=== PATIENT | female | born 1970 | race Caucasian/White ===

== ENCOUNTER 2020-11-27 15:13 | Emergency (ER) | payer BC, OTHER ==
[2020-11-27 15:25] VITALS: BP 156/70; PULSE 112; RESP 20; TEMP 98.1
[2020-11-27] MEDS ORDERED: LIDOCAINE 1% INJ 10MG/ML (20 ML MDV) SQ ONE (15:33)
--- NOTE | 2020-11-27 16:10 | ED ---
Wound/Laceration HPI - General Chief Complaint: Wound/Laceration Stated Complaint: Finger laceration Time Seen by Provider: 11/27/20 15:29 Source: patient Mode of arrival: ambulatory Limitations: no limitations - History of Present Illness Initial Comments: 50-year-old female presents to emergency department with a laceration. Patient states this occurred about one hour prior to arrival while she was using a metal handler. Patient reports lacerations on the medial aspect of the left fifth digit. Reports some bleeding which is since resolved. Denies blood thinners tetanus up-to-date. Denies paresthesias or weakness. Minimal pain. - Related Data Previous Rx's Medication Instructions Recorded Hydrocodone/Acetaminophen [[place] 1 each PO Q4HR PRN #20 tablet 10/11/13 10-325 Tablet] Mupirocin 2% Oint [Bactroban 2% 1 applic TOPICAL TID #15 gm 10/11/13 Oint] Sulfamethox-Tmp 800-160Mg [Bactrim 2 each PO Q12HR #40 tab 10/11/13 DS 800-160 mg] valACYclovir HCL [valACYclovir] 1,000 mg PO Q8HR #21 tab 10/11/13 Allergies Allergy/AdvReac Type Severity Reaction Status Date / Time Penicillins Allergy Rash/Hives Verified 11/27/20 15:25 Review of Systems ROS Statement: Those systems with pertinent positive or pertinent negative responses have been documented in the HPI. ROS Other: All systems not noted in ROS Statement are negative. Past Medical History Past Medical History: Hypertension Additional Past Medical History / Comment(s): MRSA History of Any Multi-Drug Resistant Organisms: MRSA Date of last positivie culture/infection: 07/2012 MDRO Source:: lip Past Surgical History: Tubal Ligation Past Psychological History: No Psychological Hx Reported Smoking Status: Never smoker Past Alcohol Use History: Rare Past Drug Use History: None Reported General Exam Limitations: no limitations General appearance: alert, in no apparent distress, obese Head exam: Present: atraumatic, normocephalic, normal inspection Eye exam: Present: normal appearance, EOMI Pupils: Present: normal accommodation ENT exam: Present: normal exam, normal oropharynx, mucous membranes moist Neck exam: Present: normal inspection, full ROM Respiratory exam: Present: normal lung sounds bilaterally. Absent: respiratory distress Cardiovascular Exam: Present: regular rate, normal rhythm, normal heart sounds. Absent: systolic murmur Extremities exam: Present: full ROM, tenderness (Some tenderness at lacerated site), normal capillary refill, other (Sensation intact in the left hand). Absent: normal inspection (1 [place] laceration on the distal left fifth digit) Back exam: Present: normal inspection, full ROM Neurological exam: Present: alert, oriented X3, normal gait Psychiatric exam: Present: normal affect, normal mood Skin exam: Present: warm, dry, intact, normal color Course Vital Signs 11/27/20 15:22 Temperature 98.1 F Pulse Rate 112 H Respiratory 20 Rate Blood Pressure 156/70 O2 Sat by Pulse 99 Oximetry Procedures - Laceration Laceration #1 Consent Obtained: verbal consent Indication: laceration Site: hand (Left fifth digit) Size (cm): 1 Description: linear, clean Depth: simple, single layer Sedation/Analgesia: none Anesthetic Used: lidocaine 1% Anesthesia Technique: nerve block Amount (mls): 2 Pre-repair: irrigated extensively, deep structures intact Type of Sutures: nylon Size of Sutures: 4-0 Number of Sutures: 3 Technique: simple, interrupted Patient Tolerated Procedure: well, no complications Medical Decision Making - Medical Decision Making 50-year-old male presents emergency Department with a chief complaint laceration. It was thoroughly irrigated and repaired with 3 sutures. Patient tolerate the procedure well. Advised to return for suture removal. Case discussed with physician. Disposition Clinical Impression: Finger laceration Disposition: HOME SELF-CARE Condition: Stable Instructions (If sedation given, give patient instructions): Care For Your Stitches (DC), Laceration (DC) Additional Instructions: Please return to the emergency room in 8-10 days to have sutures removed. Pleas e watch for any signs of infection which may include increased pain, swelling, redness, fever or chills. Please return to emergency room for any signs of infection do occur. Please use clean soap and water over the area to prevent scabbing over your stitches. Please leave wound covered for the first 24-48 hours and then leave wound open to air. Please return to the emergency room for any other concerns. Is patient prescribed a controlled substance at d/c from ED?: No Referrals: Rex Abad MD [Primary Care Provider] - 1-2 days Time of Disposition: 16:09
== END 2020-11-27 16:25 | disposition home or self-care (01) ==
LOC: EC 15:13
DX: S61.227A Laceration with foreign body of left little finger without damage to nail, initial encounter (principal); I10 Essential (primary) hypertension; Z88.0 Allergy status to penicillin; W29.0XXA Contact with powered kitchen appliance, initial encounter
CPT/HCPCS: 99282; 12001; J2001

== ENCOUNTER 2022-04-11 14:38 | Emergency (ER) | payer BC ==
[2022-04-11 14:42] VITALS: BP 177/96; PULSE 95; RESP 16; TEMP 98
--- NOTE | 2022-04-11 16:00 | XR ---
EXAMINATION TYPE: XR hand complete LT DATE OF EXAM: 04/11/2022 COMPARISON: NONE HISTORY: Wrist pain TECHNIQUE: 3 views FINDINGS: Metacarpals are intact. The fingers appear intact. Carpal bones appear intact. There is min or spurring at the first carpal metacarpal joint. IMPRESSION: No acute abnormality of the left hand.
--- NOTE | 2022-04-11 16:03 | XR ---
EXAMINATION TYPE: XR wrist complete LT DATE OF EXAM: 04/11/2022 COMPARISON: NONE HISTORY: Pain TECHNIQUE: 4 views FINDINGS: There is some mild spurring at the first carpometacarpal joint. The carpal bones are intact . Radiocarpal joint is intact. IMPRESSION: No acute abnormality of the left wrist.
--- NOTE | 2022-04-11 16:31 | ED ---
Upper Extremity HPI - General Chief Complaint: Extremity Injury, Upper Stated Complaint: L hand injury Time Seen by Provider: 04/11/22 14:44 Source: patient Mode of arrival: ambulatory Limitations: no limitations - History of Present Illness Initial Comments: Patient is a 51-year-old female presenting with chief complaint of left wrist pain. Patient states that 3 days ago she was holding her dog's leash and had it wrapped around her hand and wrist, the dog ran pulling her hand with him and causing her to close her hand in a heavy door. She states that initially the pain was not that bad, but as time has gone on the pain has increased with each day. There is some swelling and bruising noted to the hand and wrist. No numbness or tingling. Patient still has full range of motion. - Related Data Previous Rx's Medication Instructions Recorded Hydrocodone/Acetaminophen [[place] 1 each PO Q4HR PRN #20 tablet 10/11/13 10-325 Tablet] Mupirocin 2% Oint [Bactroban 2% 1 applic TOPICAL TID #15 gm 10/11/13 Oint] Sulfamethox-Tmp 800-160Mg [Bactrim 2 each PO Q12HR #40 tab 10/11/13 DS 800-160 mg] valACYclovir HCL [valACYclovir] 1,000 mg PO Q8HR #21 tab 10/11/13 Allergies Allergy/AdvReac Type Severity Reaction Status Date / Time Penicillins Allergy Rash/Hives Verified 11/27/20 15:25 Review of Systems ROS Statement: Those systems with pertinent positive or pertinent negative responses have been documented in the HPI. ROS Other: All systems not noted in ROS Statement are negative. Past Medical History Past Medical History: Asthma, Hypertension Additional Past Medical History / Comment(s): MRSA History of Any Multi-Drug Resistant Organisms: MRSA Date of last positivie culture/infection: 07/2012 MDRO Source:: lip Past Surgical History: Tubal Ligation Past Psychological History: No Psychological Hx Reported Smoking Status: Never smoker Past Alcohol Use History: Rare Past Drug Use History: None Reported General Exam Limitations: no limitations General appearance: alert, in no apparent distress Head exam: Present: atraumatic, normocephalic, normal inspection Eye exam: Present: normal appearance Neck exam: Present: normal inspection Left Forearm Wrist exam: Present: tenderness over anatomical snuff box Hand Wrist exam: Present: full ROM, tenderness, swelling, ecchymosis. Absent: deformity Vascular: Present: normal capillary refill. Absent: vascular compromise Neurological exam: Present: alert, oriented X3, CN II-XII intact Psychiatric exam: Present: normal affect, normal mood Skin exam: Present: warm, dry, intact, normal color. Absent: rash Course Vital Signs 04/11/22 14:39 Temperature 98 F Pulse Rate 95 Respiratory 16 Rate Blood Pressure 177/96 O2 Sat by Pulse 99 Oximetry Medical Decision Making - Medical Decision Making Patient is a 51-year-old female presenting with chief complaint of left hand and wrist injury that occurred 3 days ago. She is complaining of tenderness, sw elling, and bruising. On examination she has full range of motion, however there is pain with range of motion. Neurovascularly intact. There is snuffbox tenderness. X-ray shows no acute fracture or dislocation. Patient is placed in a thumb spica splint due to snuffbox tenderness and is instructed to follow-up with orthopedics. Educated on supportive treatment with Motrin and Tylenol resting and elevation. Follow-up with PCP. Report back to ER with any new or worsening symptoms. Discussed return parameters and answered all questions. Patient conveyed verbal understanding and agreed to the plan. I discussed this case in detail with my attending Dr. Weir Disposition Clinical Impression: Wrist sprain, Tenderness of anatomical snuffbox Disposition: HOME SELF-CARE Condition: Good Instructions (If sedation given, give patient instructions): Wrist Injury (ED), Scaphoid Fracture (ED) Additional Instructions: Follow-up with PCP and orthopedics. Report back to ER with any new or worsening symptoms. Take Motrin and Tylenol as needed for pain control. Rest and elevate the arm. You may have a scaphoid fracture which is why the splint was placed today in the ER. Keep splint on until instructed by orthopedics. Is patient prescribed a controlled substance at d/c from ED?: No Referrals: Rex Abad MD [Primary Care Provider] - 1-2 days Sunil Matthews PAC [PH[employer]IC[employer]] - 1-2 days Time of Disposition: 16:30
== END 2022-04-11 16:40 | disposition home or self-care (01) ==
LOC: EC 14:38
DX: S63.502A Unspecified sprain of left wrist, initial encounter (principal); J45.909 Unspecified asthma, uncomplicated; I10 Essential (primary) hypertension; Z88.0 Allergy status to penicillin; X50.9XXA Other and unspecified overexertion or strenuous movements or postures, initial encounter; Y92.89 Other specified places as the place of occurrence of the external cause
CPT/HCPCS: 99283

== ENCOUNTER 2024-02-20 22:24 | Emergency (ER) | payer BC ==
[2024-02-20 22:29] VITALS: TEMP 97.8
--- NOTE | 2024-02-20 22:44 | ED ---
General Adult HPI - General Chief complaint: Shortness of Breath Stated complaint: SANDY Time Seen by Provider: 02/20/24 22:30 Source: patient Mode of arrival: ambulatory Limitations: no limitations - History of Present Illness Initial comments: Dictation was produced using [email or web address] dictation software. please excuse any grammatical, word or spelling errors. Chief Complaint: 53-year-old female history of asthma presents to the emergency department with cough and dyspnea History of Present Illness: Patient 53-year-old female she has history of asthma. She states that her asthma is managed by her primary care doctor. She does not see a legal instruments examiner. Denies any history of chronic lung issues. She does not have any history of tobacco use. For the last 1 to 2 days she has been having cough. Is productive of clear phlegm. She is exposed to her daughter who had similar respiratory symptoms recently. Denies any fever, chills or night sweats. Denies any chest pain. Denies any lower extremity symptoms. No history of blood clots. The ROS documented in this emergency department record has been reviewed and confirmed by me. Those systems with pertinent positive or negative responses have been documented in the HPI. All other systems are other negative and/or noncontributory. - Related Data Previous Rx's Medication Instructions Recorded Hydrocodone/Acetaminophen [[place] 1 each PO Q4HR PRN #20 tablet 10/11/13 10-325 Tablet] Mupirocin 2% Oint [Bactroban 2% 1 applic TOPICAL TID #15 gm 10/11/13 Oint] Sulfamethox-Tmp 800-160Mg [Bactrim 2 each PO Q12HR #40 tab 10/11/13 DS 800-160 mg] valACYclovir HCL [valACYclovir] 1,000 mg PO Q8HR #21 tab 10/11/13 Azithromycin [Zithromax Z Pack] 1 tab PO DIRECTED #6 tab 02/21/24 Allergies Allergy/AdvReac Type Severity Reaction Status Date / Time Penicillins Allergy Rash/Hives Verified 11/27/20 15:25 Review of Systems ROS Statement: Those systems with pertinent positive or pertinent negative responses have been documented in the HPI. ROS Other: All systems not noted in ROS Statement are negative. Past Medical History Past Medical History: Asthma, Hypertension Additional Past Medical History / Comment(s): MRSA History of Any Multi-Drug Resistant Organisms: MRSA Date of last positivie culture/infection: 07/2012 MDRO Source:: lip Past Surgical History: Tubal Ligation Past Psychological History: No Psychological Hx Reported Smoking Status: Never smoker Past Alcohol Use History: Rare Past Drug Use History: None Reported General Exam - General Exam Comments Initial Comments: PHYSICAL EXAM: General Impression: Alert and oriented x3, n distress secondary to coughing HEENT: Normocephalic atraumatic, extra-ocular movements intact, pupils equal and reactive to light bilaterally, mucous membranes moist. Cardiovascular: Heart regular rate and rhythm Chest: Able to complete full sentences, no retractions, no tachypnea, clear to auscultation bilaterally Abdomen: abdomen soft, non-tender, non-distended, no organomegaly Musculoskeletal: Pulses present and equal in all extremities, no peripheral edema Motor: no focal deficits noted Neurological: CN II-XII grossly intact, no focal motor or sensory deficits noted Skin: Intact with no visualized rashes Psych: Normal affect and mood Limitations: no limitations Course Vital Signs 02/20/24 02/20/24 02/20/24 22:27 23:12 23:25 Temperature 97.8 F Pulse Rate 127 H 120 H 122 H Respiratory 26 H Rate Blood Pressure 157/86 O2 Sat by Pulse 97 Oximetry 02/21/24 02/21/24 02/21/24 00:18 00:29 01:15 Temperature Pulse Rate 118 H 119 H 106 H Respiratory 18 Rate Blood Pressure 106/70 O2 Sat by Pulse 98 Oximetry EKG Findings - EKG Comments: EKG Findings:: My EKG interpretation: Ventricular rate 119, sinus tachycardia, RI interval 150, QRS 90, QTc 411. No RI prolongation, no QTC prolongation, no ST or T-wave changes noted. Overall, this EKG is unremarkable Medical Decision Making - Medical Decision Making Was pt. sent in by a medical professional or institution (, PA, MACHINE TECHNICIAN, urgent care, hospital, or long-term...) When possible be specific @ -No Did you speak to anyone other than the patient for history (EMS, parent, family, police, friend...)? What history was obtained from this source @ -No Did you review nursing and triage notes (agree or disagree)? Why? @ -I reviewed and agree with nursing and triage notes Were old charts reviewed (outside hosp., previous admission, EMS record, old EKG, old radiological studies, urgent care reports/EKG's, long-term records)? Report findings @ -No old charts were reviewed Differential Diagnosis (chest pain, altered mental status, abdominal pain women, abdominal pain men, vaginal bleeding, musculoskeletal, weakness, fever, dyspnea, syncope, headache, dizziness, GI bleed, back pain, seizure, CVA, palpatations, mental health)? @ -Differential Dyspnea: Coronary syndrome, arrhythmia, tamponade, asthma, COPD, pulmonary embolism, pneumonia, pneumothorax, pulmonary effusion, anaphylaxis, diabetic ketoacidosis, flailed chest, pulmonary contusion, diaphragmatic rupture, anemia, neuromuscular, this is not meant to be an all-inclusive list. EKG interpreted by me (3pts min.). @ -None done X-rays interpreted by me (1pt min.). @ -No acute process seen on chest x-ray CT interpreted by me (1pt min.). @ -None done U/S interpreted by me (1pt. min.). @ -None done What testing was considered but not performed or refused? (CT, X-rays, U/S, labs)? Why? @ -None What meds were considered but not given or refused? Why? @ -None Was smoking cessation discussed for >3mins.? @ -No Were there social determinants of health that impacted care today? How? (Homelessness, low income, unemployed, alcoholism, drug addiction, transportation, low edu. Level, literacy, decrease access to med. care, skilled nursing, r ehab)? @ -No Was there de-escalation of care discussed even if they declined (Discuss DNR or withdrawal of care, Hospice)? DNR status @ -No What co-morbidities impacted this encounter? (DM, HTN, Smoking, COPD, CAD, Cancer, CVA, ARF, Chemo, Hep., AIDS, mental health diagnosis, sleep apnea, morbid obesity)? @ -Asthma Was patient admitted / discharged? Hospital course, mention meds given and route , prescriptions, significant lab abnormalities, going to OR and other pertinent info. @ -53-year-old female presents emergency department with acute bronchitis. Vital signs upon arrival tachycardia. Tachycardia improved after breathing treatment. Laboratory evaluation obtained. Labs are within acceptable limits. Slight dehydration. Viral testing negative. X-ray is nonacute. Patient breath ing treatment steroids reevaluated bedside with significant improvement of her symptoms. Patient agreeable for discharge. She is given Z-Lucian for concerns of bacterial pneumonia causing acute bronchitis Did you discuss the management of the patient with other professionals (professionals i.e. , PA, MACHINE TECHNICIAN, lab, RT, psych nurse, social media manager, ruffler, teacher, safety instruction police officer, corrections caseworker)? Give summary @ -No Was critical care preformed (if so, how long)? @ -No Undiagnosed new problem with uncertain prognosis? @ -No Drug Therapy requiring intensive monitoring for toxicity (Heparin, Nitro, In sulin, Cardizem)? @ -No Were any procedures done? @ -No Diagnosis/symptom? Acute, or Chronic, or Acute on Chronic? Uncomplicated (without systemic symptoms) or Complicated (systemic symptoms)? @ -Acute bacterial pneumonia complicated by acute bronchitis Side effects of treatment? @ -No Exacerbation, Progression, or Severe Exacerbation? @ -No Poses a threat to life or bodily function? How? (Chest pain, [place], [place], pneumonia, PE, COPD, DKA, ARF, appy, cholecystitis, CVA, Diverticulitis, Homicidal, Suicidal, threat to staff... and all critical care pts) @ -yes - Lab Data Result diagrams: 02/20/24 22:40 02/20/24 22:40 Lab Results 02/20/24 02/20/24 02/20/24 Range/Units 22:40 22:40 22:40 WBC 6.7 (3.8-10.6) k/uL RBC 4.80 (3.80-5.40) m/uL Hgb 14.6 (11.4-16.0) gm/dL Hct 43.9 (34.0-46.0) % MCV 91.5 (80.0-100.0) fL MCH 30.5 (25.0-35.0) pg MCHC 33.3 (31.0-37.0) g/dL RDW 13.1 (11.5-15.5) % Plt Count 237 (150-450) k/uL MPV 7.4 Neutrophils % 54 % Lymphocytes % 31 % Monocytes % 6 % Eosinophils % 7 % Basophils % 0 % Neutrophils # 3.6 (1.3-7.7) k/uL Lymphocytes # 2.1 (1.0-4.8) k/uL Monocytes # 0.4 (0-1.0) k/uL Eosinophils # 0.5 (0-0.7) k/uL Basophils # 0.0 (0-0.2) k/uL Sodium 140 (137-145) mmol/L Potassium 3.9 (3.5-5.1) mmol/L Chloride 106 (98-107) mmol/L Carbon Dioxide 29 (22-30) mmol/L Anion Gap 5 mmol/L BUN 19 H (7-17) mg/dL Creatinine 0.66 (0.52-1.04) mg/dL Est GFR (CKD-EPI)AfAm >90 (>60 ml/min/1.73 sqM) Est GFR (CKD-EPI)NonAf >90 (>60 ml/min/1.73 sqM) Glucose 127 H (74-99) mg/dL Calcium 9.5 (8.4-10.2) mg/dL Influenza Type A (PCR) Not Detected (Not Detectd) Influenza Type B (PCR) Not Detected (Not Detectd) RSV (PCR) Not Detected (Not Detectd) SARS-CoV-2 (PCR) Not Detected (Not Detectd) Disposition Clinical Impression: Pneumonia, Acute bronchitis Disposition: HOME SELF-CARE Instructions (If sedation given, give patient instructions): Acute Bronchitis (ED) Prescriptions: Azithromycin [Zithromax Z Pack] 1 tab PO DIRECTED #6 tab Is patient prescribed a controlled substance at d/c from ED?: No Referrals: Jose Mejia MD [Primary Care Provider] - 1-2 days Time of Disposition: 01:59
[2024-02-20] MEDS: IPRATROPIUM-ALBUTEROL 3 ML NEB INHALATION STA (23:10)
[2024-02-20] MEDS: DEXAMETHASONE SOD PHOSPHATE 10 MG/ML 1 ML VIAL IV STA (23:22)
[2024-02-20 23:27] LABS: Basophils % (A) 0 %; Eosinophils # (A) 0.5 k/uL (0-0.7); Eosinophils % (A) 7 %; HCT 43.9 % (34.0-46.0); HGB 14.6 gm/dL (11.4-16.0); Lymphocytes # (A) 2.1 k/uL (1.0-4.8); Lymphocytes % (A) 31 %; MCH 30.5 pg (25.0-35.0); MCHC 33.3 g/dL (31.0-37.0); MCV 91.5 fL (80.0-100.0); Mean Platelet Volume 7.4; Monocytes # (A) 0.4 k/uL (0-1.0); Monocytes % (A) 6 %; Neutrophils # (A) 3.6 k/uL (1.3-7.7); Neutrophils % (A) 54 %; Platelet Count 237 k/uL (150-450); RDW 13.1 % (11.5-15.5); WBC 6.7 k/uL (3.8-10.6)
[2024-02-20 23:40] LABS: African American GFR (CKD) >90 (>60 ml/min/1.73 sqM); Anion Gap 5 mmol/L; Blood Urea Nitrogen 19 mg/dL (7-17); Calcium 9.5 mg/dL (8.4-10.2); Carbon Dioxide 29 mmol/L (22-30); Chloride 106 mmol/L (98-107); Glucose 127 mg/dL (74-99); Non-African American GFR(CKD) >90 (>60 ml/min/1.73 sqM); Potassium 3.9 mmol/L (3.5-5.1); Sodium 140 mmol/L (137-145)
[2024-02-21] MEDS: IPRATROPIUM-ALBUTEROL 3 ML NEB INHALATION STA (00:18)
[2024-02-21 01:16] VITALS: BP 106/70; PULSE 106; RESP 18
--- NOTE | 2024-02-21 01:48 | XR ---
EXAM: XR Chest, 2 Views CLINICAL HISTORY: ITS.REASON XR Reason: sob TECHNIQUE: Frontal and lateral views of the chest. COMPARISON: No relevant prior studies available. FINDINGS: Lungs: No consolidation or mass. Pleural space: No effusion. Heart: No cardiomegaly. Bones/joints: No acute findings. IMPRESSION: No acute cardiopulmonary process.
== END 2024-02-21 02:24 | disposition home or self-care (01) ==
LOC: EC 22:24
CPT/HCPCS: 36415; 71046; 80048; 85025; 87636; 93005; 94640; 96374; 99285

== ENCOUNTER → 2024-12-07 | Outpatient (CLI) | payer BC ==
--- NOTE | 2024-12-09 18:19 | CT ---
EXAMINATION TYPE: CT brain wo/w con DATE OF EXAM: 12/07/2024 8:42 AM COMPARISON: None. CLINICAL INDICATION: Female, 54 years old with history of G44.329 chronic post traumatic headache TECHNIQUE: CT of the head before and after administration of 100 mL Isovue 300 IV contrast. Coronal and sagittal reconstructions performed. CT DLP: 2301 mGycm, Automated exposure control for dose reduction was used. FINDINGS: There is no evidence of acute intracranial hemorrhage, acute ischemic changes, mass, mass-effect, or extra-axial fluid collection. There is no effacement of cerebral sulci or basal subarachnoid cister ns. There is no hydrocephalus. There is no midline shift. Golden-white matter distinction is preserv ed. Mild atherosclerotic calcifications in the carotid siphons. Mild volume loss along the bilateral cere bral convexities. No enhancing intracranial lesions. Dural venous sinuses are patent. 8mm periapical lucency involving the right maxillary first molar. Adjacent moderate lobulated mucosal thickening floor of the right maxillary sinus. 1.4 cm mucosal retention cyst floor of the left maxil cristian sinus. Orbits and globes are intact. Mastoid air cells well pneumatized. IMPRESSION: 1. Mild volume loss overlying the superior cervical convexities. No acute intracranial abnormality se en. No enhancing lesions. 2. An 8 mm periapical lucency involving the right maxillary first molar. Correlate for any symptomati c periodontal disease. 3. Moderate chronic right maxillary sinus disease and mild on the left. [facility], Workstation: [id number], 12/09/2024 6:16 PM
== END | disposition home or self-care (01) ==
LOC: RADCTMAIN 08:01
PROVIDERS: ATTEND Family Medicine
DX: G44.329 Chronic post-traumatic headache, not intractable (principal); J32.0 Chronic maxillary sinusitis
CPT/HCPCS: 70470; Q9967